=== PATIENT | female | born 2000 | race American Indian/Alaskan Native ===

== ENCOUNTER 2020-06-27 07:12 | Emergency (ER) | payer OTHER ==
[2020-06-27 07:21] VITALS: BP 143/94
[2020-06-27] MEDS ORDERED: ACETAMINOPHEN 500 MG TAB PO ONE (08:10)
--- NOTE | 2020-06-27 08:15 | Emergency Department Report ---
ED ENT HPI - General Chief complaint: Dental/Oral Stated complaint: MOUTH PAIN/SWELLING Time Seen by Provider: 06/27/20 08:05 Source: patient Mode of arrival: Ambulatory Limitations: No Limitations - History of Present Illness Initial comments: 19-year-old morbid obese -Citizen Of [place] female presents to the emergency room complaining of tooth pain with swelling for the last 2 days is located on her right lower jaw. Patient states she is aware that she has poor dental care. Patient states her tooth was broken. Patient reports she has been taking Tylenol for her pain. Patient reports she has a medical history of nephrotic syndrome therefore she is not able to take ibuprofen. Patient also has an allergic reaction to clindamycin. Patient denies any trauma to her jaw. MD complaint: tooth pain Onset/Timin -: days(s) Location: tooth # Severity: severe Severity scale (0 -10): 8 Quality: stabbing, sharp Consistency: constant Worsens with: eating Context- Dental: history of dental caries, poor dental care - Related Data Previous Rx's Medication Instructions Recorded Last Taken Type Acetaminophen/Codeine [Tylenol 1 tab PO Q6H PRN #16 tab 06/27/20 Unknown Rx /Codeine # 3 tab] Amoxicillin/K Clav Tab [Augmentin 1 tab PO Q12HR 10 Days #20 tab 06/27/20 Unknown Rx 875 mg] Allergies Allergy/AdvReac Type Severity Reaction Status Date / Time clindamycin Allergy Hives Verified 06/27/20 07:15 ED Dental HPI - General Chief complaint: Dental/Oral Stated complaint: MOUTH PAIN/SWELLING Time Seen by Provider: 06/27/20 08:05 Source: patient Mode of arrival: Ambulatory Limitations: No Limitations - Related Data Previous Rx's Medication Instructions Recorded Last Taken Type Acetaminophen/Codeine [Tylenol 1 tab PO Q6H PRN #16 tab 06/27/20 Unknown Rx /Codeine # 3 tab] Amoxicillin/K Clav Tab [Augmentin 1 tab PO Q12HR 10 Days #20 tab 06/27/20 Unknown Rx 875 mg] Allergies Allergy/AdvReac Type Severity Reaction Status Date / Time clindamycin Allergy Hives Verified 06/27/20 07:15 ED Review of Systems ROS: Stated complaint: MOUTH PAIN/SWELLING Other details as noted in HPI Comment: All other systems reviewed and negative ED Past Medical Hx - Past Medical History Additional medical history: nephrotic syndrome - Surgical History Additional Surgical History: biospy - Social History Smoking Status: Never Smoker Substance Use Type: Marijuana - Medications Home Medications: Home Medications Medication Instructions Recorded Confirmed Last Taken Type Acetaminophen/Codeine [Tylenol 1 tab PO Q6H PRN #16 tab 06/27/20 Unknown Rx /Codeine # 3 tab] Amoxicillin/K Clav Tab [Augmentin 1 tab PO Q12HR 10 Days #20 tab 06/27/20 Unknown Rx 875 mg] ED Physical Exam - General Limitations: No Limitations General appearance: alert, in no apparent distress - Head Head exam: Present: atraumatic, normocephalic - Eye Eye exam: Present: normal appearance - ENT ENT exam: Present: mucous membranes moist - Expanded ENT Exam Expanded Teeth exam: Present: dental caries, fractured tooth #, dental tenderness #, gingival enlargement - Neck Neck exam: Present: normal inspection, full ROM. Absent: tenderness, mening ismus - Respiratory Respiratory exam: Present: normal lung sounds bilaterally. Absent: accessory muscle use - Cardiovascular Cardiovascular Exam: Present: regular rate - Back Exam Back exam: Present: normal inspection - Neurological Exam Neurological exam: Present: alert, oriented X3, normal gait - Psychiatric Psychiatric exam: Present: normal affect, normal mood - Skin Skin exam: Present: warm, dry, intact, normal color. Absent: rash ED Course Vital Signs 06/27/20 07:18 Temperature 99.9 F H Pulse Rate 101 H Respiratory 20 Rate Blood Pressure 143/94 O2 Sat by Pulse 98 Oximetry ED Medical Decision Making - Medical Decision Making 19-year-old morbid obese -Citizen Of [place] female presents to the emergency room complaining of tooth pain with swelling for the last 2 days is located on her right lower jaw. Patient states she is aware that she has poor dental care. Patient states her tooth was broken. Patient reports she has been taking Tylenol for her pain. Patient reports she has a medical history of nephrotic syndrome therefore she is not able to take ibuprofen. Patient also has an allergic reaction to clindamycin. Patient denies any trauma to her jaw. Patient be given Tylenol 1 g while in ER. Patient was discharged home on Augmentin Tylenol 3 and a referral to a dentist. Critical care attestation.: If time is entered above; I have spent that time in minutes in the direct care of this critically ill patient, excluding procedure time. ED Disposition Clinical Impression: Dental abscess Disposition: DC-01 TO HOME OR SELFCARE Is pt being admited?: No Does the pt Need Aspirin: No Condition: Stable Instructions: Dental Abscess, [id number] Additional Instructions: Please complete antibiotics as prescribed. Pain medication as needed. Do not operate heavy machinery while taking medication. It is very important to follow-up with a dentist. I have listed several below for your convenience. Prescriptions: Amoxicillin/K Clav Tab [Augmentin 875 mg] 1 tab PO Q12HR 10 Days #20 tab Acetaminophen/Codeine [Tylenol /Codeine # 3 tab] 1 tab PO Q6H PRN #16 tab PRN Reason: Pain , Severe (7-10) Referrals: PRIMARY CARE, [Primary Care Provider] - 3-5 Days [facility] [Outside] - 3-5 Days [facility] [Outside] - 3-5 Days [facility] [Provider Group] - 3-5 Days [facility] [Outside] - 3-5 Days Forms: Work/School Release Form(ED)
== END 2020-06-27 08:43 | disposition home or self-care (01) ==
LOC: ED 07:12
DX: K04.7 Periapical abscess without sinus (principal); F12.10 Cannabis abuse, uncomplicated; Z98.890 Other specified postprocedural states; Z79.2 Long term (current) use of antibiotics; Z79.899 Other long term (current) drug therapy; Z88.1 Allergy status to other antibiotic agents
CPT/HCPCS: 99282

== ENCOUNTER 2021-03-01 07:14 | Emergency (ER) | payer SELFPAY ==
[2021-03-01 08:41] VITALS: BP 134/77
--- NOTE | 2021-03-01 09:34 | Emergency Department Report ---
Chief Complaint: Urogenital-Female Stated Complaint: VAGINAL DISCHARGE - HPI History of Present Illness: The patient was evaluated in the emergency department for symptoms described in the history of present illness. He/she was evaluated in the context of the global COVID-19 pandemic, which necessitated consideration that the patient might be at risk for infection with the virus that causes COVID-19. Institutional protocols and algorithms that pertain to the evaluation of patients at risk for COVID-19 are in a state of rapid change based on information released by regulatory bodies including the CDC and federal and state organizations. These policies and algorithms were followed during the patient's care in the emergency department. Please note that these policies, procedures and recommendations changed on a rapid basis. 20-year-old -[place] female that is morbid obese presents to the emergency room complaining of vaginal irritation and discharge since her menstrual period on 02/21/2021. She denies any pelvic pain no abdominal pain no nausea no vomiting no diarrhea no fever or chills. Patient states she is usually seen by [facility]. Last time she checked in with them was in September. - Exam Vital Signs: Vital Signs 03/01/21 08:37 Temperature 98.4 F Pulse Rate 99 H Respiratory 15 Rate Blood Pressure 134/77 O2 Sat by Pulse 100 Oximetry Physical Exam: General: Awake, appropriately interactive, no acute distress. Neck: Supple. Full range of motion intact. Cardiovascular: Normal peripheral perfusion. Pulmonary: No respiratory distress. Patient is speaking normally without use of accessory muscles. Skin: No apparent rashes or lesions. Neurological: No facial asymmetry. Speech is clear. Follows commands. Patient is alert and oriented. Musculoskeletal: Full range of motion, no crepitus. Able to bear weight and ambulate without difficulty. Psych: Cooperative. Appropriate mood and affect. MSE screening note: Focused history and physical exam performed. Due to findings the following was ordered: 20-year-old -[place] female that is morbid obese presents to the emergency room complaining of vaginal irritation and discharge since her menstrual period on 02/21/2021. She denies any pelvic pain no abdominal pain no nausea no vomiting no diarrhea no fever or chills. Patient states she is usually seen by [facility]. Last time she checked in with them was in September. ED Medical Decision Making - Medical Decision Making 20-year-old -[place] female that is morbid obese presents to the emergency room complaining of vaginal irritation and discharge since her menstrual period on 02/21/2021. She denies any pelvic pain no abdominal pain no nausea no vomiting no diarrhea no fever or chills. Patient states she is usually seen by [facility]. Last time she checked in with them was in September. Discussed with patient she can follow-up at the health department [facility] or primary care provider. Patient has stable vital signs she is in no acute distress. She has no pain. ED Disposition for MSE Disposition: HOME / SELF CARE / HOMELESS Is pt being admited?: No Does the pt Need Aspirin: No Condition: Stable Additional Instructions: Recommend to follow-up at the health department, [facility] or your primary care provider. Referrals: [facility] [Outside] - 3-5 Days [facility] [Outside] - 3-5 Days [facility] [Outside] - 3-5 Days [facility] [Outside] - 3-5 Days [facility] [Provider Group] - 3-5 Days [facility] [Provider Group] - 3-5 Days Time of Disposition: 09:25
== END 2021-03-01 09:30 | disposition home or self-care (01) ==
LOC: ED 07:14
DX: N89.8 Other specified noninflammatory disorders of vagina (principal)
CPT/HCPCS: 99281